=== PATIENT | female | born 1995 | race Caucasian/White ===

== ENCOUNTER 2017-06-12 14:37 | Emergency (ER) | payer BC ==
[~2017-06-12] VITALS: Ht 149.9 cm; Wt 41.5 kg
[~2017-06-12 14:37] MED LIST: ACET-2047 PO; BENZ100C70 PO; CIPR500T4 PO; LORA10CA PO; METR500T PO; RANI150T9 PO
[2017-06-12 14:39] VITALS: Ht 149.9 cm; Wt 41.5 kg
--- NOTE | 2017-06-12 15:25 | ERD ---
ER Documentation Chief Complaint Date/Time DATE: 06/12/17 TIME: 15:12 Chief Complaint EPIGASTRIC PAIN X 3 DAYS HPI This 22-year-old female presents to emergency department today for evaluation of epigastric pain. Patient has a complex gastrointestinal history, reports that today's pain is intermittent and not present at this time has been intermittent for the last 3 days, pain is nonradiating, without nausea vomiting or diarrhea. Patient reports decreased appetite. History of irritable bowel disease with usually with diarrhea and rectal bleeding. Patient has had recent colonoscopy and endoscopy and has a follow-up appointment at her soap worker Dr He on June 24. Patient denies any burning in her chest, any sour taste in her mouth. Patient denies any chest pain, shortness of breath, or palpitations. Patient states she is currently not on any H2 peggy or PPI, she is on medication for Crohn's disease and being worked up for Crohn's disease versus ulcerative colitis ROS All systems reviewed and are negative except as per history of present illness. Medications Home Meds Active Scripts Loratadine* (Claritin*) 10 Mg Capsule, 10 MG PO DAILY, #14 CAP Prov:FRANCISCO LAZAR PA-C 01/04/16 Benzonatate* (Tessalon Perle*) 100 Mg Capsule, 100 MG PO TID, #20 CAP Prov:FRANCISCO LAZAR PA-C 01/04/16 Acetaminophen* (Acetaminophen*) 650 Mg Tablet, 650 MG PO Q6H Y for PAIN AND OR ELEVATED TEMP, #30 TAB Prov:FRANCISCO LAZAR PA-C 01/04/16 Ranitidine Hcl* (Zantac*) 150 Mg Tablet, 150 MG PO BID Y for gi, #30 TAB Prov:CYNTHIA MONTILLA 11/25/15 Metronidazole* (Flagyl*) 500 Mg Tablet, 500 MG PO TID for 7 Days, TAB Prov:CYNTHIA MONTILLA 11/25/15 Ciprofloxacin Hcl* (Ciprofloxacin Hcl*) 500 Mg Tablet, 500 MG PO BID for 7 Days , TAB Prov:CYNTHIA MONTILLA 11/25/15 Allergies Allergies: Coded Allergies: No Known Allergy (Unverified , 11/25/15) PMhx/Soc History of Surgery: No Anesthesia Reaction: No Hx Neurological Disorder: No Hx Respiratory Disorders: No Hx Cardiac Disorders: No Hx Miscellaneous Medical Probl: No Hx Alcohol Use: No Hx Substance Use: No Hx Tobacco Use: No Smoking Status: Never smoker Physical Exam Vitals Vital Signs Date Time Temp Pulse Resp B/P Pulse Ox O2 Delivery O2 Flow Rate FiO2 06/12/17 14:39 98.1 107 18 130/81 98 Vitals stable, triage notes for Physical Exam Const: Well-appearing, thin, well-hydrated, in no acute distress Head: Atraumatic Eyes: Normal Conjunctiva, PERRLA, EOMI ENT: Normal External Ears, Nose and Mouth mucous membranes moist. Neck: Resp: Respirations even and unlabored, no respiratory Cardio: Abd: Soft, non tender, non distended. No McBurney's point tenderness, negative Esposito sign, no CVA tenderness Skin: Back: No midline or flank tenderness Ext: Neur: Awake and alert Psych: Normal Mood and Affect Procedures/MDM This pleasant 22-year-old female presents to emergency department today for evaluation of epigastric pain. Patient has complex medical history of gastroenteritis being evaluated for Crohn's disease versus ulcerative colitis recent colonoscopy and endoscopically with appointment scheduled for June 24 to review laboratory and diagnostic procedure testing results. Patient today has an unremarkable examination. Patient has no concern for pulsating abdominal mass, hypotension, or suspected abdominal aortic aneurysm. No suspicion for appendicitis, pneumonia or pulmonary embolism,, no suspicion for bowel obstruction or peritonitis. I have spent 15 minutes with patient discussing today's treatment, normal progression of evaluation of abdominal pain with soap worker,, patient will be discharged home with prescription for Zantac 150 mg 1 tab p.o. twice daily 30 days. Continue all previous medical treatments as ordered, diet discussed, patient instructed to avoid acidic foods, spicy foods, chocolate, caffeine, carbonated beverages, and alcohol, no smoking. Not to eat or drink 3 hours prior to bedtime. Return to emergency department for chest pain, shortness of breath, palpitations or dizziness. I feel the patient is stable for discharge at this time outpatient management by soap worker. I have discussed results, examination findings, the treatment plan with the patient and family present prior to discharge. Indications for emergent reevaluation, side effects of medication were also discussed. All questions were answered. Patient verbalizes understanding and agrees with plan of care. Departure Diagnosis: Primary Impression: Epigastric pain Condition: Good Patient Instructions: Epigastric Pain (Uncertain Cause) Additional Instructions: Thank you for for coming to [facility] for your care today. Please ask your nurse or provider if you have questions about your care today and do not leave until all your questions have been answered. Please use any medications given as directed and follow-up with your doctor (or the doctor you were referred to) in the next 2-3 days. If you do not have a primary care doctor you may follow up at the [facility] (listed below). You may also use motrin and tylenol as needed for fever and/or pain unless instructed otherwise by your provider or nurse. Indications for more urgent follow-up have been discussed, but you may return to the Emergency Department at ANY time for any worrisome or worsening symptoms. If you have abdominal pain, please know that no test or exam you received is perfect and you should follow up within 8 hours for continued pain. If you had any imaging studies today, such as an X-Ray or CT Scan, these studies will be reviewed later by a radiologist. You will be called if there are important findings that were not identified today, so make sure the contact information you provided at registration is correct. If you received any narcotic pain control medicine today, such as Vicodin, Morphine or Dilaudid, your coordination and judgment may be affected for a number of hours. Please do not drive or operate heavy machinery, and you may want someone to assist you at home. If you were given a prescription for narcotic medication, be aware that it is very addictive- use sparingly and only if necessary. ELIANA KHAN Jun 12, 2017 15:23
[2017-06-12] MEDS ORDERED: RANI150T9 PO (15:26)
== END 2017-06-12 16:02 | disposition home or self-care (01) ==
LOC: FTE 14:37
DX: R10.13 Epigastric pain (principal)
CPT/HCPCS: 99283

== ENCOUNTER 2017-06-26 22:54 | Emergency (ER) | payer BC ==
[~2017-06-26] VITALS: Ht 149.9 cm; Wt 41.0 kg
[2017-06-26 23:00] VITALS: Ht 149.9 cm; Wt 41.0 kg
--- NOTE | 2017-06-27 00:30 | ERA ---
ER Documentation Chief Complaint Date/Time DATE: 06/27/17 TIME: 00:29 Chief Complaint AP since March The patient is a 22-year-old female, presenting to the ER because of chronic abdominal pain, chromic diarrhea since March 2017. She has been seen in the ER multiple times. The abdominal pain is diffuse and chronic. She denies fever, chills, neck pain, chest pain, dyspnea, dysuria.. She recently had EGD and colonoscopy on May 29, [address]. EGD showed hiatal hernia, reflux esophagitis, gastritis, gastric erosion. Colonoscopy showed colitis, sigmoiditis, proctitis, internal hemorrhoids. She was treated properly and saw her stemming machine operator 2 days ago. She does not smoke nor drink Past medical history: Chronic abdominal pain, under investigation by her stemming machine operator ROS All systems reviewed and are negative except as per history of present illness. Medications Home Meds Active Scripts Hydrocodone/Acetaminophen ([place]view 5-325 Tablet) 1 Each Tablet, 1 EACH PO Q6, #10 TAB Prov:TOMMIE EDGAR MD 06/27/17 Metronidazole* (Flagyl*) 500 Mg Tablet, 500 MG PO TID for 10 Days, TAB Prov:TOMMIE EDGAR MD 06/27/17 Ciprofloxacin Hcl* (Ciprofloxacin Hcl*) 500 Mg Tablet, 500 MG PO BID for 10 Days , TAB Prov:TOMMIE EDGAR MD 06/27/17 Ranitidine Hcl* (Zantac*) 150 Mg Tablet, 150 MG PO BID Y for EPIGASTRIC PAIN, # 30 TAB Prov:ELIANA KHAN 06/12/17 Loratadine* (Claritin*) 10 Mg Capsule, 10 MG PO DAILY, #14 CAP Prov:FRANCISCO LAZAR-Netta 01/04/16 Benzonatate* (Tessalon Perle*) 100 Mg Capsule, 100 MG PO TID, #20 CAP Prov:FRANCISCO LAZAR-C 01/04/16 Acetaminophen* (Acetaminophen*) 650 Mg Tablet, 650 MG PO Q6H Y for PAIN AND OR ELEVATED TEMP, #30 TAB Prov:FRANCISCO LAZAR-C 01/04/16 Ranitidine Hcl* (Zantac*) 150 Mg Tablet, 150 MG PO BID Y for gi, #30 TAB Prov:CYNTHIA MONTILLA 11/25/15 Metronidazole* (Flagyl*) 500 Mg Tablet, 500 MG PO TID for 7 Days, TAB Prov:EKITHArjunMURIELELIZABETHCYNTHIA 11/25/15 Ciprofloxacin Hcl* (Ciprofloxacin Hcl*) 500 Mg Tablet, 500 MG PO BID for 7 Days , TAB Prov:KEITHArjunMURIELELIZABETHCYNTHIA 11/25/15 Allergies Allergies: Coded Allergies: No Known Allergy (Unverified , 11/25/15) PMhx/Soc History of Surgery: No Anesthesia Reaction: No Hx Neurological Disorder: No Hx Respiratory Disorders: No Hx Cardiac Disorders: No Hx Miscellaneous Medical Probl: No Hx Alcohol Use: No Hx Substance Use: No Hx Tobacco Use: No Physical Exam Vitals Vital Signs Date Time Temp Pulse Resp B/P Pulse Ox O2 Delivery O2 Flow Rate FiO2 06/26/17 23:00 99.0 112 20 121/74 99 Physical Exam Const: No acute distress. Head: Atraumatic. Eyes: Normal Conjunctiva. ENT: Normal External Ears, Nose and Mouth. Neck: Full range of motion. No meningismus. Resp: Clear to auscultation bilaterally. Cardio: Regular tachycardic Abd: Soft, non distended, normal bowel sounds, minimal and vague diffuse abdominal tenderness, no rigidity, rebound, CVA tenderness Skin: No petechiae or rashes. Back: No midline or flank tenderness. Ext: No cyanosis, or edema. Neur: Awake and alert. No focal deficit Psych: Normal Mood and Affect. Result Diagram: 06/27/17 0127 06/27/17 0127 Results 24 hrs Laboratory Tests Test 06/27/17 01:27 06/27/17 01:33 White Blood Count 14.810^3/ul Red Blood Count 4.9210^6/ul Hemoglobin 13.0g/dl Hematocrit 39.2% Mean Corpuscular Volume 79.7fl Mean Corpuscular Hemoglobin 26.4pg Mean Corpuscular Hemoglobin Concent 33.2g/dl Red Cell Distribution Width 14.1% Platelet Count 47777^3/UL Mean Platelet Volume 9.5fl Neutrophils % 51.5% Lymphocytes % 21.0% Monocytes % 9.3% Eosinophils % 16.9% Basophils % 0.6% Nucleated Red Blood Cells % 0.0/100WBC Neutrophils # 7.610^3/ul Lymphocytes # 3.110^3/ul Monocytes # 1.410^3/ul Eosinophils # 2.510^3/ul Basophils # 0.110^3/ul Nucleated Red Blood Cells # 0.010^3/ul Sodium Level 144mmol/L Potassium Level 3.1mmol/L Chloride Level 101mmol/L Carbon Dioxide Level 27mmol/L Anion Gap 19 Blood Urea Nitrogen 4mg/dl Creatinine 0.59mg/dl Glucose Level 97mg/dl Calcium Level 8.6mg/dl Total Bilirubin 0.1mg/dl Direct Bilirubin 0.00mg/dl Indirect Bilirubin 0.1mg/dl Aspartate Amino Transf (AST/SGOT) 18IU/L Alanine Aminotransferase (ALT/SGPT) 30IU/L Alkaline Phosphatase 67IU/L Total Protein 7.0g/dl Albumin 3.9g/dl Globulin 3.10g/dl Albumin/Globulin Ratio 1.25 Lipase 107U/L Bedside Urine pH (LAB) 5.5 Bedside Urine Protein (LAB) Negative Bedside Urine Glucose (UA) Negative Bedside Urine Ketones (LAB) Trace Bedside Urine Blood 2+ Bedside Urine Nitrite (LAB) Negative Bedside Urine Leukocyte Esterase (L Negative Current Medications Medications (Trade) Dose Ordered Sig/[place] Route PRN Reason Start Time Stop Time Status Last Admin Dose Admin Sodium Chloride (NS) 1,000 ml @ 1,000 mls/hr Q1H ONCE IV 06/27/17 01:00 06/27/17 01:59 DC 06/27/17 01:33 Morphine Sulfate (morphine) 2 mg ONCE ONCE IV 06/27/17 01:00 06/27/17 01:01 DC Ondansetron HCl (Zofran Inj) 4 mg ONCE STAT IV 06/27/17 00:56 06/27/17 00:59 DC Pantoprazole (Protonix Tab) 40 mg ONCE ONCE PO 06/27/17 01:00 06/27/17 01:01 DC 06/27/17 01:47 IV Flush 10 ml 10 ml STK-MED ONCE .ROUTE 06/27/17 02:51 06/27/17 02:52 DC 06/27/17 03:05 Sodium Chloride (NS) 100 ml @ ud STK-MED ONCE .ROUTE 06/27/17 02:51 06/27/17 02:52 DC 06/27/17 03:05 Iohexol (Omnipaque 300mg/ ml) 150 ml STK-MED ONCE .ROUTE 06/27/17 02:52 06/27/17 02:53 DC 06/27/17 03:06 Potassium Chloride (Klor-Con 20) 40 meq ONCE ONCE PO 06/27/17 04:25 06/27/17 04:26 DC 06/27/17 04:27 Procedures/MDM [place] [id number] Radiology Main Line: [phone] DIAGNOSTIC IMAGING REPORT Patient: CONCETTA GEORGE : 1995 Age: 22 Sex: F MR #: [id number] DOS: 06/27/17 0231 Ordering MD: TOMMIE EDGAR MD Location: [facility] Room/Bed: PROCEDURE: CT ABDOMEN/PELVIS WITH CONTRAST CLINICAL INDICATION: 22-year-old female with abdominal pain. TECHNIQUE: The study was performed utilizing a GE [employer] VCT 64-slice CT scanner. Direct axial sections were obtained through the abdomen and pelvis with the use of 80 cc of Omnipaque-300 nonionic intravenous contrast material. Sagittal and coronal reformations were obtained. One or more of the following dose reduction techniques were utilized: automated exposure control, adjustment of the mA and/or kV according to patient's size or use of iterative reconstruction technique. The images were reviewed on a PACS workstation. CTD/ vol = 3.9 mGy; Total Exam DLP = 177.9 mGy-cm. COMPARISON: CT abdomen/pelvis November 25, 2015. FINDINGS: The lung bases are unremarkable. There is no evidence for significant pleural effusion. The liver has a normal size and contour without focal areas of abnormal density or contrast enhancement. No intrahepatic nor extrahepatic biliary ductal dilatation is seen. The gallbladder demonstrates no wall thickening nor pericholecystic fluid. No biliary stones are evident. The pancreas is without areas of abnormal attenuation or contrast enhancement. This spleen is identified and has a normal size without abnormal density or contrast enhancement. The adrenal glands are unremarkable. The kidneys are functional bilaterally without abnormal density. No hydroureteronephrosis nor nephroureterolithiasis is evident. The urinary bladder contains urine. There is mildly dilated fluid-filled loops of small bowel without transition point suggestive of an enteritis. There is mild retained stool identified within the ascending and transverse colon without obstruction. There is an ovoid radiopaque density within the small bowel in the right lower quadrant most likely representing ingested pill. The appendix is visualized and is without edema or surrounding inflammatory reaction. The uterus is anteflexed. There is minimal pelvic free fluid. The aortoiliac vessels are without aneurysmal dilatation. The osseous structures are intact. IMPRESSION: 1. Mild fluid identified throughout the small bowel without evidence for obstruction suggestive of an enteritis. Clinical correlation is necessary. 2. Mild retained stool within the proximal colon. 3. No CT evidence for appendicitis. 4. Minimal pelvic free fluid. .Harman Pelaez MD, MD Date Time Electronically viewed and signed by .Harman Pelaez MD, on 06/27/2017 03:32 .M/ CC: TOMMIE EDGAR MD MEDICAL MAKING DECISION: The patient is a 22-year-old female, presenting with acute on chronic abdominal pain of unclear etiology, acute dehydration, acute hypokalemia. She was treated with 1 L normal saline for acute dehydration, morphine 2 mg IV for pain, Zofran 4 mg IV for nausea, Protonix 40 mg p.o. for epigastric abdominal pain, potassium chloride 40 mEq p.o. for acute hypokalemia with good response. On multiple reevaluation, abdominal exams were unremarkable The differential diagnoses considered include but are not limited to cholelithiasis, cholecystitis, cystitis, pancreatitis, hepatitis, gastritis, peptic ulcer disease, gastric ulcer, appendicitis, diverticulitis, cholangitis, choledocholithiasis, partial small bowel obstruction, colitis. Departure Diagnosis: Primary Impression: Abdominal pain Additional Impressions: Hypokalemia Dehydration Condition: Stable Comments She was discharged with Cipro Flaglisa and [place] I discussed the findings with the patient. I advised the patient to follow-up with her stemming machine operator Dr. He in about 1-2 days, sooner if needed and return if any concern. TOMMIE EDGAR MD Jun 27, 2017 00:30
[2017-06-27] MEDS ORDERED: ONDANSETRON 4 MG INJ IV STA (00:56)
[2017-06-27] MEDS ORDERED: SOD CHLORIDE 0.9% 1,000 ML IV ONE (01:00)
[2017-06-27] MEDS ORDERED: PANTOPRAZOLE (EC) 40 MG TAB PO ONE (01:00)
[2017-06-27] MEDS ORDERED: morphine 2 MG INJ IV ONE (01:00)
[2017-06-27 01:28] LABS: URINE BLOOD (Dip) POC 2+ (NEGATIVE)
[2017-06-27 01:41] LABS: ABNORMAL IP MESSAGE 1; BASOPHIL # 0.1 10^3/ul (0.0-0.1); BASOPHILS % 0.6 % (0.0-2.0); EOSINOPHILS # 2.5 10^3/ul (0.0-0.5); HEMATOCRIT 39.2 % (37.0-47.0); LYMPHOCYTES # 3.1 10^3/ul (0.8-2.9); MEAN CORPUSCULAR HEMOGLOBIN 26.4 pg (29.0-33.0); MEAN CORPUSCULAR HGB CONC 33.2 g/dl (32.0-37.0); MEAN CORPUSCULAR VOLUME 79.7 fl (82.0-101.0); MEAN PLATELET VOLUME 9.5 fl (7.4-10.4); MONOCYTE # 1.4 10^3/ul (0.3-0.9); MONOCYTES % 9.3 % (0.0-11.0); NEUTROPHIL # 7.6 10^3/ul (1.6-7.5); NEUTROPHILS % 51.5 % (39.0-77.0); PLATELET COUNT 299 10^3/UL (140-415); RED BLOOD COUNT 4.92 10^6/ul (4.20-5.40); RED CELL DISTRIBUTION WIDTH 14.1 % (11.5-14.5); WHITE BLOOD COUNT 14.8 10^3/ul (4.8-10.8)
[2017-06-27 01:42] LABS: EOSINOPHILS % 16.9 % (0.0-7.0); POSITIVE DIFF @See below
[2017-06-27 02:01] LABS: ALBUMIN 3.9 g/dl (3.3-4.9); ALBUMIN/GLOBULIN RATIO 1.25; BILIRUBIN,INDIRECT 0.1 mg/dl (0-1.1); BILIRUBIN,TOTAL 0.1 mg/dl (0.2-1.3); CALCIUM 8.6 mg/dl (8.4-10.2); CREATININE 0.59 mg/dl (0.44-1.00); POTASSIUM 3.1 mmol/L (3.5-5.1)
[2017-06-27] MEDS ORDERED: SOD CHLORIDE 0.9% 100 ML ONE (02:51)
[2017-06-27] MEDS ORDERED: IOHEXOL 300MG/ML 150 ML BTL ONE (02:52)
--- NOTE | 2017-06-27 03:33 | RADRPT ---
PROCEDURE: CT ABDOMEN/PELVIS WITH CONTRAST CLINICAL INDICATION: 22-year-old female with abdominal pain. TECHNIQUE: The study was performed utilizing a GE [employer] VCT 64-slice CT scanner. Direct axia l sections were obtained through the abdomen and pelvis with the use of 80 cc of Omnipaque-300 nonio griffin intravenous contrast material. Sagittal and coronal reformations were obtained. One or more of t he following dose reduction techniques were utilized: automated exposure control, adjustment of the mA and/or kV according to patient's size or use of iterative reconstruction technique. The images w ere reviewed on a PACS workstation. CTD/vol = 3.9 mGy; Total Exam DLP = 177.9 mGy-cm. COMPARISON: CT abdomen/pelvis November 25, 2015. FINDINGS: The lung bases are unremarkable. There is no evidence for significant pleural effusion. The liver has a normal size and contour without focal areas of abnormal density or contrast enhancement. No in trahepatic nor extrahepatic biliary ductal dilatation is seen. The gallbladder demonstrates no wall thickening nor pericholecystic fluid. No biliary stones are evident. The pancreas is without areas o f abnormal attenuation or contrast enhancement. This spleen is identified and has a normal size wit hout abnormal density or contrast enhancement. The adrenal glands are unremarkable. The kidneys are functional bilaterally without abnormal density. No hydroureteronephrosis nor nephroureterolithiasis is evident. The urinary bladder contains urine. There is mildly dilated fluid-filled loops of small bowel without transition point suggestive of an enteritis. There is mild retained stool identified within the ascending and transverse colon without obstruction. There is an ovoid radiopaque density within the small bowel in the right lower quadrant most likely representing ingested pill. The appendix is visualized and is without edema or surrounding inflammatory reaction. The uterus is anteflexed. There is minimal pelvic free fluid. The aortoiliac vessels are without aneurysmal dila tation. The osseous structures are intact. IMPRESSION: 1. Mild fluid identified throughout the small bowel without evidence for obstruction suggestive of an enteritis. Clinical correlation is necessary. 2. Mild retained stool within the proximal colon. 3. No CT evidence for appendicitis. 4. Minimal pelvic free fluid. .Harman Pelaez MD, Date Time Electronically viewed and signed by .Harman Pelaez MD, on 06/27/2017 03:32 .M/
[2017-06-27] MEDS ORDERED: CIPR500T4 PO (04:23)
[2017-06-27] MEDS ORDERED: METR500T PO (04:23)
[2017-06-27] MEDS ORDERED: HYDR-906 PO (04:24)
[2017-06-27] MEDS ORDERED: POTASSIUM CHLORIDE (SR) 20 MEQ TAB PO ONE (04:25)
== END 2017-06-27 04:53 | disposition home or self-care (01) ==
LOC: FTE 22:54
DX: R10.84 Generalized abdominal pain (principal); E87.6 Hypokalemia; E86.0 Dehydration; R11.0 Nausea
CPT/HCPCS: 36415; 74177; 80053; 81003; 83690; 85025; J7030; Q9967; Z7502; Z7610; J2270; J2405

== ENCOUNTER 2017-11-03 19:18 | Emergency (ER) | payer BC, OTHER ==
[~2017-11-03] VITALS: Ht 152.4 cm; Wt 42.8 kg
[~2017-11-03 19:18] MED LIST changes: +HYDR-906 PO
[2017-11-03 19:29] VITALS: Ht 152.4 cm; Wt 42.8 kg
[2017-11-03] MEDS ORDERED: morphine 4 MG/ML VIAL IV STA (20:58)
[2017-11-03] MEDS ORDERED: ONDANSETRON 4 MG INJ IV STA (20:58)
[2017-11-03] MEDS ORDERED: SOD CHLORIDE 0.9% 1,000 ML IV STA (20:58)
[2017-11-03] MEDS ORDERED: PANTOPRAZOLE 40 MG INJ IV ONE (21:00)
--- NOTE | 2017-11-03 21:16 | ERD ---
ER Documentation Chief Complaint Chief Complaint epigstric pain x2 days HPI 3-year-old female presents here to emergency department for complaints of epigastric pain started 2 days ago, patient has history of gastric ulcers, is currently on omeprazole, also has history of ulcerative colitis. Patient is complaining of epigastric pain, sharp pain, succession scale, accompanied with vomiting and diarrhea. Patient does not have any blood in the stool or black stool. Patient denies any blood in the vomit. Patient has brownish colored emesis. ROS All systems reviewed and are negative except as per history of present illness. Medications Home Meds Active Scripts Hydrocodone/Acetaminophen (Chandler 5-325 Tablet) 1 Each Tablet, 1 EACH PO Q6, #10 TAB Prov:TOMMIE EDGAR MD 06/27/17 Metronidazole* (Flagyl*) 500 Mg Tablet, 500 MG PO TID for 10 Days, TAB Prov:TOMMIE EDGAR MD 06/27/17 Ciprofloxacin Hcl* (Ciprofloxacin Hcl*) 500 Mg Tablet, 500 MG PO BID for 10 Days , TAB Prov:TOMMIE EDGAR MD 06/27/17 Ranitidine Hcl* (Zantac*) 150 Mg Tablet, 150 MG PO BID Y for EPIGASTRIC PAIN, # 30 TAB Prov:ELIANA KHAN 06/12/17 Loratadine* (Claritin*) 10 Mg Capsule, 10 MG PO DAILY, #14 CAP Prov:FRANCISCO LAZAR-C 01/04/16 Benzonatate* (Tessalon Perle*) 100 Mg Capsule, 100 MG PO TID, #20 CAP Prov:FRANCISCO LAZAR-C 01/04/16 Acetaminophen* (Acetaminophen*) 650 Mg Tablet, 650 MG PO Q6H Y for PAIN AND OR ELEVATED TEMP, #30 TAB Prov:FRANCISCO LAZAR-C 01/04/16 Ranitidine Hcl* (Zantac*) 150 Mg Tablet, 150 MG PO BID Y for gi, #30 TAB Prov:CYNTHIA MONTILLA 11/25/15 Metronidazole* (Flagyl*) 500 Mg Tablet, 500 MG PO TID for 7 Days, TAB Prov:CYNTHIA MONTILLA 11/25/15 Ciprofloxacin Hcl* (Ciprofloxacin Hcl*) 500 Mg Tablet, 500 MG PO BID for 7 Days , TAB Prov:CYNTHIA MONTILLA 11/25/15 Allergies Allergies: Coded Allergies: No Known Allergy (Unverified , 11/25/15) PMhx/Soc History of Surgery: No Anesthesia Reaction: No Hx Neurological Disorder: No Hx Respiratory Disorders: No Hx Cardiac Disorders: No Hx Miscellaneous Medical Probl: Yes (gastritis, gastric ulcers, UC) Hx Alcohol Use: No Hx Substance Use: No Hx Tobacco Use: No Smoking Status: Never smoker FmHx Family History: No coronary disease, No diabetes, No other Physical Exam Vitals Vital Signs Date Time Temp Pulse Resp B/P Pulse Ox O2 Delivery O2 Flow Rate FiO2 11/04/17 01:15 99.5 90 11 96/57 99 Room Air 11/03/17 19:29 98.3 99 20 119/73 99 Physical Exam GENERAL: The patient is well developed and appropriate for usual state of health, in no apparent distress. CHEST: Clear to auscultation bilaterally. There are no rales, wheezes or rhonchi. HEART: Regular rate and rhythm. No murmurs, clicks, rubs or gallops. No S3 or S4. ABDOMEN: Soft, nontender and nondistended. Good bowel sounds. No rebound or guarding. No gross peritonitis. No gross organomegaly or masses. No Esposito sign or McBurney point tenderness. BACK: No midline or flank tenderness. EXTREMITIES: Equal pulses bilaterally. There is no peripheral clubbing, cyanosis or edema. No focal swelling or erythema. Full range of motion. Grossly neurovascularly intact. NEURO: Alert and oriented. Cranial nerves 2-12 intact. Motor strength in all 4 extremities with 5/5 strength. Sensation grossly intact. Normal speech and gait. SKIN: There is no apparent rash or petechia. The skin is warm and dry. HEMATOLOGIC AND LYMPHATIC: There is no evidence of excessive bruising or lymphedema. No gross cervical, axillary, or inguinal lymphadenopathy. Result Diagram: 11/03/17212211/03/172122 Results 24 hrs Laboratory Tests Test 11/03/17 21:23 11/03/17 21:25 White Blood Count 5.910^3/ul Red Blood Count 4.9210^6/ul Hemoglobin 10.1g/dl Hematocrit 32.9% Mean Corpuscular Volume 66.9fl Mean Corpuscular Hemoglobin 20.5pg Mean Corpuscular Hemoglobin Concent 30.7g/dl Red Cell Distribution Width 15.9% Platelet Count 53719^3/UL Mean Platelet Volume 10.9fl Neutrophils % % Segmented Neutrophils % (Manual) 44% Band Neutrophils % (Manual) 14% Lymphocytes % (Manual) 25% Monocytes % (Manual) 17% Eosinophils % % Nucleated Red Blood Cells % 6% Neutrophils # 10^3/ul Neutrophils # (Manual) 2.610^3/ul Band Neutrophils # 0.810^3/ul Absolute Lymphocytes (Manual) 1.410^3/ul Absolute Monocytes (Manual) 1.010^3/ul Eosinophils # 10^3/ul Platelet Estimate NORMAL Giant Platelets 1% Polychromasia 1+ Anisocytosis 1+ Microcytosis 1+ Sodium Level 143mmol/L Potassium Level 2.6mmol/L Chloride Level 99mmol/L Carbon Dioxide Level 26mmol/L Anion Gap 21 Blood Urea Nitrogen 10mg/dl Creatinine 0.60mg/dl Glucose Level 93mg/dl Calcium Level 8.8mg/dl Total Bilirubin 0.4mg/dl Direct Bilirubin 0.00mg/dl Indirect Bilirubin 0.4mg/dl Aspartate Amino Transf (AST/SGOT) 32IU/L Alanine Aminotransferase (ALT/SGPT) 37IU/L Alkaline Phosphatase 53IU/L Total Protein 8.0g/dl Albumin 4.2g/dl Globulin 3.80g/dl Albumin/Globulin Ratio 1.10 Lipase 33U/L Urine Color CANDY Urine Clarity CLEAR Urine pH 5.0 Urine Specific Sutter 1.030 Urine Ketones 1+mg/dL Urine Nitrite NEGATIVEmg/dL Urine Bilirubin NEGATIVEmg/dL Urine Urobilinogen NEGATIVEmg/dL Urine Leukocyte Esterase NEGATIVELeu/ul Urine Microscopic RBC 35/HPF Urine Microscopic WBC 6/HPF Urine Squamous Epithelial Cells FEW/HPF Urine Hemoglobin 2+mg/dL Urine Glucose NEGATIVEmg/dL Urine Total Protein 1+mg/dl Current Medications Medications (Trade) Dose Ordered Sig/[place] Route PRN Reason Start Time Stop Time Status Last Admin Dose Admin Sodium Chloride (NS) 1,000 ml @ 1,000 mls/hr Q1H STAT IV 11/03/17 20:58 11/03/17 21:57 DC 11/03/17 21:36 Morphine Sulfate (morphine) 4 mg ONCE STAT IV 11/03/17 20:58 11/03/17 20:59 DC 11/03/17 21:36 Ondansetron HCl (Zofran Inj) 4 mg ONCE STAT IV 11/03/17 20:58 11/03/17 20:59 DC 11/03/17 21:36 Pantoprazole (Protonix Iv) 40 mg ONCE ONCE IV 11/03/17 21:00 11/03/17 21:01 DC 11/03/17 21:35 IV Flush 10 ml 10 ml STK-MED ONCE .ROUTE 11/03/17 21:34 11/03/17 21:35 DC 11/03/17 22:32 Sodium Chloride (NS) 100 ml @ ud STK-MED ONCE .ROUTE 11/03/17 21:34 11/03/17 21:35 DC 11/03/17 22:33 Iohexol 150 ml 150 ml STK-MED ONCE .ROUTE 11/03/17 21:34 11/03/17 21:35 DC 11/03/17 22:33 Potassium Chloride (KCl 40 MEQ/250 ML NS) 250 ml @ 62.5 mls/hr ONCE ONCE IVPB 11/04/17 01:00 11/04/17 02:05 DC 11/04/17 00:11 Patient was given medication for pain here in emergency department, after treatment, patient verbalized feeling much better. Patient's pain is improved. Patient was given Zofran here in the emergency department. After treatment, patient was able to tolerate po fluids here in the emergency department without any vomiting. There is no signs and symptoms of dehydration. PROCEDURE: CT Abdomen and Pelvis with contrast. CLINICAL INDICATION: Abdominal pain, nausea, vomiting TECHNIQUE: CT scan of the abdomen and pelvis with contrast was performed on a multi-detector high-resolution CT scanner. The patient was scanned following the intravenous administration of 85 cc of Omnipaque-300. Coronal and sagittal reformatted images were obtained from the axial source images. Images were reviewed on a high-resolution PACS workstation. The total exam CTDI equals 4.01 mGy and the total exam DLP equals 195.11 mGy-cm. One or more the following dose reduction techniques were utilized: Automated exposure control, adjustment of the mA and / or kV according to patient's size, or use of iterative reconstruction technique. DICOM images are available. COMPARISON: CT 06/27/2017 FINDINGS: The lung bases are clear. No pneumoperitoneum is seen. No abnormality is seen in the liver, gallbladder, spleen, pancreas, adrenals or kidneys. No definite abnormality of the stomach is seen. No abdominal aortic aneurysm is seen. No biliary dilatation is seen. No definite abnormality of the uterus or adnexal regions is seen on CT. No abnormality seen in the bladder. No definite renal or ureteral stone is seen on this contrast-enhanced study. No definite free intrapelvic fluid is seen. No definite abnormality of the colon is seen. No dilated small bowel loops are seen. There is no definite evidence of acute appendicitis seen. No enlarged lymph nodes are seen in the abdomen or pelvis. There is appearance of mild wall thickening of several small bowel loops in the left upper abdomen which could be secondary to enteritis. Small Schmorl's nodes in thoracolumbar spine IMPRESSION: There is appearance of mild wall thickening of several small bowel loops in the left upper abdomen which could be secondary to enteritis. Please see above. RPTAT: HJES .Kar Moreno MD, MD Date Time Electronically viewed and signed by .Kar Moreno MD, MD on 11/03/2017 23:10 .S/ CC: JENNY ORTIZ [employer]ER Procedures/MDM Medical Decision Making: Patient symptoms of epigastric pain nonspecific at this time, possible from gastric ulcer, can be also from viral illness, her potassium at this time is 2.6, also hemoglobin dropped from 13-10, further evaluation and management, possible bleeding ulcers, patient would need GI evaluation for further evaluation and management, I discussed this case with my attending physician, Dr. Layne, patient will be admitted to the hospital for further evaluation and management. At this time, low suspicion for any gastric perforation, though a CT scan abdomen and pelvis was ordered for further evaluation. Potassium replacement would also be done.. Patient pain is controlled at this time. Disclaimer: Inadvertent spelling and grammatical errors are likely due to EHR/ dictation software use and do not reflect on the overall quality of patient care. Also, please note that the electronic time recorded on this note does not necessarily reflect the actual time of the patient encounter. Departure Diagnosis: Primary Impression: Epigastric pain Additional Impression: Hypokalemia Condition: JENNY Salvador NP Nov 03, 2017 21:16
[2017-11-03] MEDS ORDERED: IOHEXOL 300MG/ML 150 ML BTL ONE (21:34)
[2017-11-03] MEDS ORDERED: SOD CHLORIDE 0.9% 100 ML ONE (21:34)
[2017-11-03 21:50] LABS: ABNORMAL IP MESSAGE 1; HEMATOCRIT 32.9 % (37.0-47.0); HEMOGLOBIN 10.1 g/dl (12.0-16.0); MEAN CORPUSCULAR HEMOGLOBIN 20.5 pg (29.0-33.0); MEAN CORPUSCULAR HGB CONC 30.7 g/dl (32.0-37.0); MEAN CORPUSCULAR VOLUME 66.9 fl (82.0-101.0); MEAN PLATELET VOLUME 10.9 fl (7.4-10.4); PLATELET COUNT 239 10^3/UL (140-415); RED BLOOD COUNT 4.92 10^6/ul (4.20-5.40); RED CELL DISTRIBUTION WIDTH 15.9 % (11.5-14.5); WHITE BLOOD COUNT 5.9 10^3/ul (4.8-10.8)
[2017-11-03 21:55] LABS: POSITIVE DIFF @See below
[2017-11-03 22:02] LABS: ALBUMIN 4.2 g/dl (3.3-4.9); ALBUMIN/GLOBULIN RATIO 1.1; BILIRUBIN,INDIRECT 0.4 mg/dl (0-1.1); BILIRUBIN,TOTAL 0.4 mg/dl (0.2-1.3); CALCIUM 8.8 mg/dl (8.4-10.2); CREATININE 0.6 mg/dl (0.44-1.00)
[2017-11-03 22:04] LABS: POTASSIUM 2.6 mmol/L (3.5-5.1)
[2017-11-03 22:18] LABS: ADD UMIC YES; UR ASCORBIC ACID NEGATIVE (NEGATIVE); UR BILIRUBIN (Dip) NEGATIVE (NEGATIVE); UR BLOOD (Dip) 2+ mg/dL (NEGATIVE); UR CLARITY CLEAR (CLEAR); UR COLOR AMBER (YELLOW); UR GLUCOSE (Dip) NEGATIVE (NEGATIVE); UR KETONES (Dip) 1+ mg/dL (NEGATIVE); UR LEUKOCYTE ESTERASE (Dip) NEGATIVE Leu/ul (NEGATIVE); UR NITRITE (Dip) NEGATIVE (NEGATIVE); UR NONSQUAMOUS EPITHELIAL CELL 2 /HPF (NONE SEEN); UR RBC 35 /HPF (0-5); UR SQUAMOUS EPITHELIAL CELL FEW /HPF (FEW); UR TOTAL PROTEIN (Dip) 1+ mg/dl (NEGATIVE); UR UROBILINOGEN (Dip) NEGATIVE (NEGATIVE)
--- NOTE | 2017-11-03 23:11 | RADRPT ---
PROCEDURE: CT Abdomen and Pelvis with contrast. CLINICAL INDICATION: Abdominal pain, nausea, vomiting TECHNIQUE: CT scan of the abdomen and pelvis with contrast was performed on a multi-detector high- resolution CT scanner. The patient was scanned following the intravenous administration of 85 cc of Omnipaque-300. Coronal and sagittal reformatted images were obtained from the axial source images. Images were reviewed on a high-resolution PACS workstation. The total exam CTDI equals 4.01 mGy and the total exam DLP equals 195.11 mGy-cm. One or more the following dose reduction techniques were utilized: Automated exposure control, adjus tment of the mA and / or kV according to patient's size, or use of iterative reconstruction techniqu e. DICOM images are available. COMPARISON: CT 06/27/2017 FINDINGS: The lung bases are clear. No pneumoperitoneum is seen. No abnormality is seen in the liver, gallblad rainer, spleen, pancreas, adrenals or kidneys. No definite abnormality of the stomach is seen. No abdom inal aortic aneurysm is seen. No biliary dilatation is seen. No definite abnormality of the uterus o r adnexal regions is seen on CT. No abnormality seen in the bladder. No definite renal or ureteral s tone is seen on this contrast-enhanced study. No definite free intrapelvic fluid is seen. No definit e abnormality of the colon is seen. No dilated small bowel loops are seen. There is no definite evid ence of acute appendicitis seen. No enlarged lymph nodes are seen in the abdomen or pelvis. There is appearance of mild wall thickening of several small bowel loops in the left upper abdomen which cou ld be secondary to enteritis. Small Schmorl's nodes in thoracolumbar spine IMPRESSION: There is appearance of mild wall thickening of several small bowel loops in the left upper abdomen w hich could be secondary to enteritis. Please see above. RPTAT: HJES .Kar Moreno MD, Date Time Electronically viewed and signed by .Kar Moreno MD, MD on 11/03/2017 23:10 .S/
[2017-11-03 23:35] LABS: ANISOCYTOSIS 1+ (0-0); ERYTHROBLAST% (NRBC) (M) 6 % (0-0); GIANT THROMBO% (M) 1 % (0-0); MICROCYTOSIS 1+ (0-0); MONOCYTES % (M) 17 % (0-11); PLATELET ESTIMATE NORMAL; POLYCHROMASIA 1+ (0-0)
[2017-11-04] MEDS ORDERED: POTASSIUM CHLORIDE 250 ML IVPB ONE (01:00)
[2017-11-04 01:15] VITALS: BP 96/57; PULSE 90; RESP 11; TEMP 99.5
== END 2017-11-04 02:05 | disposition short-term general hospital (02) ==
LOC: FTE 19:18
DX: R10.13 Epigastric pain (principal); E87.6 Hypokalemia
CPT/HCPCS: 36415; 74177; 80053; 81001; 83690; 85025; 96374; 96375; C9113; J2270; J2405; J3480; J7030; Q9967; Z7502; Z7610

== ENCOUNTER 2018-02-21 01:57 | Emergency (ER) | END 2018-02-21 05:05 | disposition home or self-care (01) ==

== ENCOUNTER 2018-03-23 08:40 | Day surgery (SDC) | END 2018-03-23 14:25 | disposition home or self-care (01) ==